=== PATIENT | female | born 1975 | race Caucasian/White ===

== ENCOUNTER 2018-07-05 11:35 | Inpatient (IN) | payer BC ==
[~2018-07-05] VITALS: Ht 144.8 cm; Wt 80.7 kg
[2018-07-05 11:39] VITALS: BP 159/97
[2018-07-05] MEDS ORDERED: SPIR100T4 PO (11:47)
[2018-07-05] MEDS ORDERED: FLONAS NS (11:47)
[2018-07-05] MEDS ORDERED: ENAL5TAB20 PO (11:47)
[2018-07-05] MEDS ORDERED: NORE1TAB PO (11:47)
[2018-07-05] MEDS ORDERED: METF850T PO (11:47)
--- NOTE | 2018-07-05 11:50 | NUR ---
Bhaskar carpenter in ED - 07/05/18 at 1150 by DAYAN PATIENT AMBULATED TO ER BED 7. RN EVALUATING AT BEDSIDE.
--- NOTE | 2018-07-05 11:51 | NUR ---
PATIENT AMBULATED TO ER BED 11. RN EVALUATING AT BEDSIDE. Addendum: 07/05/18 at 1158 by MILLER AMBULATED TO BED 7
--- NOTE | 2018-07-05 11:55 | NUR ---
BIB . AAO X4 C/O COUGH, SORE THROAT 09/25 X 5 DAYS WITH FEVER. PT LOST HER VOICE ON THURSDAY. PT STATES CHILLS AND YELLOW TO GREEN PHLEGM. PT STATES SHE WAS SEEN BY PCP YESTERDAY AND WAS PRESCRIBED AMOXICILLIN AND SHE WAS SEEN AGAIN BY HER PCP TODAY AND WAS GIVEN BREATHING TX, PCP REFERRED PT TO ER FOR FURTHER EVALUATION. EXPIRATORY WHEEZING NOTED ON THE CORTES POSTERIOR LUNGS UPON AUSCULTATION. PT DENIES SOB AT THIS TIME. HOB UP. BED SIDE RAILS UP. ON LOW BED POSITION, LOCKED. ER TO EVALUATE PT.
--- NOTE | 2018-07-05 11:59 | NUR ---
PT UNABLE TO VOID AT THIS TIME.
--- NOTE | 2018-07-05 12:08 | NUR ---
Dr. Lerma evaluating patient at bedside.
--- NOTE | 2018-07-05 12:29 | NUR ---
PT AMBULATED TO THE BATHROOM WITH STEADY GAIT TO GIVE URINE SAMPLE.
--- NOTE | 2018-07-05 12:38 | NUR ---
PT AMBULATED BACK TO BED WITH STEADY GAIT. PT UNABLE TO GIVE URINE AT THIS TIME.
--- NOTE | 2018-07-05 12:50 | NUR ---
DR LEON AT BEDSIDE FOR PT EVALUATION
[2018-07-05] MEDS ORDERED: ACETAMINOPHEN 325 MG TAB PO ONE (13:00)
[2018-07-05] MEDS ORDERED: NACL 0.9% 1,000 ML IV ONE ×2 (13:00→16:45)
--- NOTE | 2018-07-05 13:00 | NUR ---
PATIENT UNABLE TO PRODUCE URINE AT THIS TIME, WATER CUP GIVEN TO PATIENT.
[2018-07-05 13:24] LABS: BASOPHILS # (AUTO) 0.1 K/uL (0.00-0.22); BASOPHILS % (AUTO) 0.6 % (0.0-2.0); EOSINOPHILS # (AUTO) 0.2 K/uL (0-0.4); EOSINOPHILS % (AUTO) 1.4 % (0.0-4.0); HEMATOCRIT 38.1 % (36-48); LYMPHOCYTES # (AUTO) 2.1 K/uL (2.5-16.5); LYMPHOCYTES % (AUTO) 19.4 % (20.5-51.1); MEAN CORPUSCULAR HEMOGLOBIN 29 pg (27-31); MEAN CORPUSCULAR HGB CONC 34 g/dL (33-37); MEAN CORPUSCULAR VOLUME 85.2 fL (80-94); MONOCYTES # (AUTO) 0.8 K/uL (0.8-1.0); MONOCYTES % (AUTO) 7.6 % (1.7-9.3); NEUTROPHILS # (AUTO) 7.8 K/uL (1.8-7.7); PLATELET COUNT (AUTO) 349 K/uL (140-450); RED BLOOD CELL COUNT(AUTO) 4.47 MIL/uL (4.20-5.40); RED CELL DISTRIBUTION WIDTH 13.7 % (11.6-13.7)
--- NOTE | 2018-07-05 13:32 | NUR ---
PT UNABLE TO GIVE URINE AT THIS TIME.
[2018-07-05 13:36] LABS: ANION GAP 13.1 (8-16); CARBON DIOXIDE 28.3 mmol/L (21-32); POTASSIUM 3.4 mmol/L (3.5-5.1)
[2018-07-05 13:42] LABS: ALBUMIN 2.9 g/dL (3.4-5.0); TOTAL BILIRUBIN 0.7 mg/dL (0.0-1.0)
--- NOTE | 2018-07-05 14:10 | NUR ---
PT AMBULATED TO THE BATHROOM STEADY GAIT TO TRY TO GIVE URINE SPECIMEN.
[2018-07-05 16:54] LABS: APPEARANCE,URINE HAZY (CLEAR); BILIRUBIN,URINE 2+ (NEGATIVE); BLOOD, URINE 1+ (NEGATIVE); COLOR,URINE AMBER (YELLOW); LEUKOCYTE ESTERASE ,URINE NEGATIVE (NEGATIVE); NITRITE, URINE POSITIVE (NEGATIVE); UGLUCOSE NEGATIVE (NEGATIVE)
[2018-07-05 17:14] LABS: CALCIUM OXALATE CRYSTALS,UR 0-10 /HPF (None Seen); WBC,URINE 0-5 /HPF (0-5)
--- NOTE | 2018-07-05 19:15 | NUR ---
Pt report given to LINDA Batista. Transfer of care at this time. Addendum: 07/05/18 at 2055 by [email or web address] NOTE MADE BY SOO BLANK RN
--- NOTE | 2018-07-05 19:30 | NUR ---
RECEIVED REPORT FROM AM NURSE. PT LAYING IN BED, RR EVEN AND UNLABORED. PT NOTED WITH COUGH SPELLS. VS NOTED. PT PROVIDED WITH SANDWICH AND WATER. ALL NEEDS MET AT THIS TIME.
[2018-07-05] MEDS ORDERED: cefTRIAXone 1,000 MG VIAL ONE (20:20)
[2018-07-05] MEDS ORDERED: ONDANSETRON 4 MG/2 ML VIAL IVP PRN (21:20)
[2018-07-05] MEDS ORDERED: ACETAMINOPHEN 325 MG TAB PO PRN (21:20)
[2018-07-05] MEDS ORDERED: HYDROcodone/APAP 5/325 MG 1 TAB TAB PO PRN (21:20)
[2018-07-05] MEDS ORDERED: INSULIN LISPRO SLIDING SCALE 100 UNITS/ML VIAL SUBQ PRN (21:20)
[2018-07-05] MEDS ORDERED: DEXTROSE 50% 50 ML SYR IVP PRN (21:20)
[2018-07-05] MEDS ORDERED: MORPHINE SULFATE 4 MG/ML SYR IVP PRN (21:20)
--- NOTE | 2018-07-05 21:30 | NUR ---
PT LAYING IN BED, RR EVEN AND UNLABORED. REPORTS MILD THROAT PAIN, NOTED COUGHING SPELLS. ALL NEEDS MET AT THIS TIME.
--- NOTE | 2018-07-05 21:49 | NUR ---
Patient will be admitted to care of DR DURANT. Admited to TELE. Will go to room 120A. Belongings list completed. Report to LINDA MA.
--- NOTE | 2018-07-05 21:55 | NUR ---
PT ARRIVED FROM ER VIA GURNEY. AAOX4. NO C/O PAIN OR SOB. ON ROOM AIR. PT HAS PRODUCTIVE COUGH. AFEBRILE. SKIN INTACT. IV TO LEFT AC #20G, PATENT AND INTACT. PT AMBULATES WITHOUT ASSIST. ORIENTED PT TO ROOM. DISCUSSED PLAN OF CARE, PT VERBALIZED UNDERSTANDING. MRSA SWAB COLLECTED. CALL LIGHT WITHIN REACH.
[2018-07-05] MEDS: NACL 0.9% 1,000 ML IV SCH (22:17)
[2018-07-05 22:30] VITALS: BP 149/89
--- NOTE | 2018-07-05 23:00 | NUR ---
SPUTUM COLLECTED FOR CULTURE AND SENT TO LAB. PT REFUSED SCD, PT AMBULATES WITHOUT ASSIST.
[2018-07-06] VITALS: BP 140/80
--- NOTE | 2018-07-06 01:00 | NUR ---
PT ASKED AND PROVIDED HOT TEA. ALL NEEDS ATTENDED AT THIS TIME. CALL LIGHT WITHIN REACH.
--- NOTE | 2018-07-06 03:30 | NUR ---
PT SLEEPING BUT EASILY AROUSABLE. NO S/S OF RESP DISTRESS. NO S/S OF PAIN. NO COUGHING AT THIS TIME.
[2018-07-06 04:00] VITALS: BP 140/83
--- NOTE | 2018-07-06 04:20 | NUR ---
PT C/O MILD SOB AND COUGH. BREATHING TREATMENT GIVEN BY RT. PT DENIES PAIN.
[2018-07-06] MEDS: ALBUTEROL 0.083% 2.5 MG/3 ML NEBU INH PRN ×3 (04:27→13:23)
--- NOTE | 2018-07-06 04:45 | NUR ---
PT STATED SHE FELT BETTER AFTER THE BREATHING TREATMENT. DENIES PAIN OR SOB AT THIS TIME.
[2018-07-06] MEDS: BLOOD GLUCOSE MONITORING 1 DEV DEV FS SCH ×2 (06:01→11:30)
--- NOTE | 2018-07-06 06:05 | NUR ---
IV TO RIGHT AC INFILTRATED. REMOVED IV CANNULA, TIP INTACT. INSERTED NEW LINE TO RIGHT WRIST #22G. GOOD FLUSH AND BLOOD RETURN. PT TOLERATED PROCEDURE WELL.
--- NOTE | 2018-07-06 07:05 | NUR ---
ENDORSED PT TO DAY SHIFT NURSE. PT IN STABLE CONDITION.
--- NOTE | 2018-07-06 07:10 | NUR ---
RECEIVED PT FROM INDIRECT FIRE INFANTRYMAN NURSENANCY, PT IS AWAKE AND SEATED ON THE BED WITH SIDE RAILS UP AND CALL LIGHT WITHIN REACH, PT HAS AN IV LINE ON THE RT WRIST G. 22 WITH NS INFUSING AT 75ML/HR, INTACT, SATURATION IN ROOM AIR, AOX1, RESPONDING APPROPRIATELY, DENIES PAIN AT THIS TIME. NO SIGN OF DISTRESS NOTED AND WILL MONITOR PT.
[2018-07-06 08:00] VITALS: BP 157/92
--- NOTE | 2018-07-06 08:00 | NUR ---
PT IS AWKE AND VITAL SIGNS TAKEN AND BP IS 157/92, PULSE IS 103, O2 SATURATION 99%, TEMPERATURE IS 98.9, RESPIRATION IS 18/MIN, NO SIGN OF DISTRESS NOTED AND WILL MONITOR PT.
[2018-07-06] MEDS ORDERED: SPIRONOLACTONE 50 MG TAB PO ONE (09:00)
[2018-07-06] MEDS ORDERED: ENALAPRIL 5 MG TAB PO SCH (09:00)
[2018-07-06] MEDS ORDERED: ENOXAPARIN 40 MG/0.4 ML SYR SUBQ SCH (09:00)
[2018-07-06] MEDS ORDERED: metFORMIN 850 MG TAB PO SCH (09:00)
--- NOTE | 2018-07-06 09:00 | NUR ---
PATIENT HAS BEEN SCREENED AND CATEGORIZED MODERATE NUTRITION RISK. PATIENT WILL BE SEEN WITHIN 3-5 DAYS OF ADMISSION. 07/08/18[address]
--- NOTE | 2018-07-06 09:15 | NUR ---
PT IS AWAKE AND WAS ASSISTED TO THE BATHROOM, VITAL SIGNS CHECKED AND BP IS 156/100, PULSE IS 111 AND O2 SATURATION IS 97%, ORAL AND SUBQ MEDICATIONS WERE GIVEN AND PT TOLERATED IT. NO SIGN OF DISTRESS NOTED AND WILL MONITOR PT.
[2018-07-06] MEDS: NACL 0.9% 1,000 ML IV SCH (10:39)
--- NOTE | 2018-07-06 11:40 | NUR ---
PT IS AWAKE AND BLOOD GLUCOSE CHECK DONE AND RESULT IS 83, NO INSULIN COVERAGE NEEDED. VITAL SIGNS CHECKED AND BP IS 137/88, PULSE IS 104, TEMPERATURE IS 99, O2 SATURATION IS 96%, RESPIRATION IS 18/MIN, PT DENIES PAIN AND NO SIGN OF DISTRESS NOTED. WILL MONITOR PT.
[2018-07-06 12:00] VITALS: BP 137/88
[2018-07-06] MEDS ORDERED: LEVO750T2 PO (12:36)
[2018-07-06] MEDS ORDERED: ALBU-118 IH (12:36)
--- NOTE | 2018-07-06 18:03 | NUR ---
DISCHARGED PT VIA WHEELCHAIR WITH , DISCHARGED TEACHINGS AND PRESCRIPTION INSTRUCTION GIVEN TO PT AND VERBALIZED UNDERSTANDING. IV LINE AND ARM BANDS REMOVED. PT IS STABLE AT THIS TIME. Addendum: 07/06/18 at 1809 by Alma Delia Vizcaino RN DISCHARGED TIME FOR THE ABOVE NOTE IS 1530.
[2018-07-06] MEDS ORDERED: LEVOFLOXACIN 750 MG/D5W PREMIX 150 ML IV SCH (22:00)
== END 2018-07-06 15:30 | disposition home or self-care (01) | DRG 202 ==
LOC: MED 11:35 → INTOOBSV 21:19 → UNDOADMOB 21:19 → MTU 21:19 → UNDOADMOB 07-06 14:03 → MTU 07-06 14:03
PROVIDERS: ADMIT Internal Medicine Pulmonary Disease; ATTEND Internal Medicine Pulmonary Disease
DX: J20.9 Acute bronchitis, unspecified (principal); N12 Tubulo-interstitial nephritis, not specified as acute or chronic; J45.909 Unspecified asthma, uncomplicated; I10 Essential (primary) hypertension; E28.2 Polycystic ovarian syndrome; E87.6 Hypokalemia; Z88.5 Allergy status to narcotic agent; Z88.0 Allergy status to penicillin; Z79.84 Long term (current) use of oral hypoglycemic drugs; Z79.899 Other long term (current) drug therapy
CPT/HCPCS: 36415; 71046; 80053; 81001; 81025; 82948; 83036; 83605; 83880; 84443; 85025; 87070; 87081; 87086; 87205; 87804; 94640; G0378; J0696; J1650; J1815; J7030; J7060; J7613